=== PATIENT | male | born 1965 | race Caucasian/White ===

== ENCOUNTER → 2017-01-27 | Outpatient (CLI) | payer OTHER | LOC: SP 14:15 | PROVIDERS: ATTEND Specialist | DX: M79.602 Pain in left arm (principal); M79.89 Other specified soft tissue disorders | CPT/HCPCS: 93971 ==

== ENCOUNTER → 2017-05-07 | Outpatient (CLI) | payer OTHER ==
--- NOTE | 2017-05-07 15:03 | RADIOLOGY REPORT (SQ) ---
EXAM DESCRIPTION: KUB COMPLETED DATE/TIME: 05/07/2017 2:39 pm REASON FOR STUDY: CALCULUS OF KIDNEY N20.0 CALCULUS OF KIDNEY COMPARISON: 01/19/2016 NUMBER OF VIEWS: One view. TECHNIQUE: Supine radiographic image of the abdomen acquired. LIMITATIONS: None. FINDINGS: BOWEL GAS PATTERN: Normal bowel gas pattern. No dilated loops. CALCIFICATIONS: A single small calcification is noted in the left mid abdomen. This measures 4.2 mm in diameter. This lies inferior and lateral to the L2 transverse process. Exact location of this ca nnot be determined. This appears to lie outside of the left kidney. It is possibly represents the p reviously described stone in the lower pole the left kidney SOFT TISSUES: No gross mass or suggestion of organomegaly. HARDWARE: None in the abdomen. BONES: No acute fracture. No worrisome bone lesions. OTHER: No other significant finding. IMPRESSION: Small calcification in the left mid abdomen as described. Gas pattern is nonspecific. TECHNICAL DOCUMENTATION: JOB ID: [id number] [employer]- All Rights Reserved
== END ==
LOC: OD 14:21
PROVIDERS: ATTEND Urology
DX: N20.0 Calculus of kidney (principal)
CPT/HCPCS: 74000

== ENCOUNTER → 2017-05-12 | Outpatient (CLI) | payer OTHER ==
[2017-05-12 15:59] LABS: PROTHROMBIN TIME 15.1 SEC (11.4-15.4)
[2017-05-12 16:00] LABS: PARTIAL THROMBOPLASTIN TIME 31.9 SEC (23.5-35.8)
== END ==
LOC: OD 15:03
PROVIDERS: ATTEND Urology
DX: N20.0 Calculus of kidney (principal)
CPT/HCPCS: 36415; 85610; 85730

== ENCOUNTER → 2019-10-13 | Day surgery (SDC) | payer OTHER ==
[~2019-10-13] MED LIST: METHYLPREDNISOLONE ACETATE INJ 80 MG/1 ML VIAL ONE
--- NOTE | 2019-10-13 14:32 | RADIOLOGY REPORT (SQ) ---
EXAM DESCRIPTION: INJECT/ASPIR HIP/SHLDR/KNEE; FLUORO/NEEDLE PLACEMENT COMPLETED DATE/TIME: 10/13/2019 1:58 pm REASON FOR STUDY: (M16.12)UNILATERAL PRIMARY OSTEOARTHRITIS, LEFT HIP M16.12 UNILATERAL PRIMARY OST EOARTHRITIS, LEFT HIP COMPARISON: None. FLUOROSCOPY TIME: 7 seconds. 1 image submitted to PACS. LIMITATIONS: None. PROCEDURE: SITE OF INJECTION: Left femoroacetabular joint. LOCALIZING CONTRAST TYPE AND DOSE: 1 mL of Omnipaque. MEDICATION TYPE AND DOSE: 80 mg of Depo-Medrol and 5 mL of bupivacaine. Using local anesthesia and sterile technique with fluoroscopic guidance, the needle was advanced into the joint. Iodinated contrast was injected to verify intraarticular placement. This was followed by therapeutic injection of the indicated medications. The needle was removed. There were no immediat e complications. Preprocedure pain level: 6/10. Postprocedure pain level: 0/10. IMPRESSION: THERAPEUTIC INJECTION OF THE LEFT FEMOROACETABULAR JOINT ABOVE. COMMENT: Patient medication list reviewed: Yes- Quality ID# [id number]:Eligible professional attests to doc umenting in the medical record they obtained, updated, or reviewed the patient's current medications. . Quality ID 145: Final reports for procedures using fluoroscopy that document radiation exposure roselyn elmer, or exposure time and number of fluorographic images (if radiation exposure indices are not avail able) TECHNICAL DOCUMENTATION: JOB ID: [id number] [employer]- All Rights Reserved Reading location - IP/workstation name: [email or web address]
--- NOTE | 2019-10-13 14:32 | RADIOLOGY REPORT (SQ) ---
EXAM DESCRIPTION: INJECT/ASPIR HIP/SHLDR/KNEE; FLUORO/NEEDLE PLACEMENT COMPLETED DATE/TIME: 10/13/2019 1:58 pm REASON FOR STUDY: (M16.12)UNILATERAL PRIMARY OSTEOARTHRITIS, LEFT HIP M16.12 UNILATERAL PRIMARY OST EOARTHRITIS, LEFT HIP COMPARISON: None. FLUOROSCOPY TIME: 7 seconds. 1 image submitted to PACS. LIMITATIONS: None. PROCEDURE: SITE OF INJECTION: Left femoroacetabular joint. LOCALIZING CONTRAST TYPE AND DOSE: 1 mL of Omnipaque. MEDICATION TYPE AND DOSE: 80 mg of Depo-Medrol and 5 mL of bupivacaine. Using local anesthesia and sterile technique with fluoroscopic guidance, the needle was advanced into the joint. Iodinated contrast was injected to verify intraarticular placement. This was followed by therapeutic injection of the indicated medications. The needle was removed. There were no immediat e complications. Preprocedure pain level: 6/10. Postprocedure pain level: 0/10. IMPRESSION: THERAPEUTIC INJECTION OF THE LEFT FEMOROACETABULAR JOINT ABOVE. COMMENT: Patient medication list reviewed: Yes- Quality ID# [id number]:Eligible professional attests to doc umenting in the medical record they obtained, updated, or reviewed the patient's current medications. . Quality ID 145: Final reports for procedures using fluoroscopy that document radiation exposure roselyn elmer, or exposure time and number of fluorographic images (if radiation exposure indices are not avail able) TECHNICAL DOCUMENTATION: JOB ID: [id number] [employer]- All Rights Reserved Reading location - IP/workstation name: [email or web address]
== END ==
LOC: RAD 12:49
PROVIDERS: ATTEND Family Medicine
DX: M16.12 Unilateral primary osteoarthritis, left hip (principal)
CPT/HCPCS: 20610; 77002; J1040

== ENCOUNTER → 2020-11-01 | Outpatient (CLI) | payer OTHER | LOC: OD 11:59 | DX: Z47.1 Aftercare following joint replacement surgery (principal); Z96.642 Presence of left artificial hip joint | CPT/HCPCS: 36415; 85652; 86141 ==